=== PATIENT | male | born 1970 | race African-American/Black ===

== ENCOUNTER → 2021-10-17 | Day surgery (SDC) | payer OTHER ==
[~2021-10-17] VITALS: Ht 177.8 cm; Wt 113.4 kg
[~2021-10-17] MED LIST: B COMPLEX1 EACH PO; MOTRIN600 MG PO; NORVASC5 MG PO; VITAMIN C1000 MG PO; VITAMIN D325 MC2 PO
[2021-10-17 06:59] LABS: HCT 44.9 % (42.0-52.0); HGB 14.7 g/dl (13.2-18.0); MCH 27.5 pg (25.0-31.0); MCHC 32.7 g/dL (32.0-36.0); MCV 83.9 fL (78.0-100.0); MPV 9.1 fL (6.0-9.5); RBC 5.35 M/uL (4.70-6.00); RDW 13.1 % (11.5-14.0); WBC 4.1 K/uL (4.0-10.5)
[2021-10-17 07:45] LABS: ALBUMIN 3.4 g/dL (3.4-5.0); BUN/CREAT RATIO (CALC) 10.8 RATIO; CREATININE 1.3 mg/dL (0.67-1.17); GLOBULIN (CALCULATION) 3.9 g/dL; POTASSIUM 4.2 mmol/L (3.5-5.1); TOTAL PROTEIN 7.3 g/dL (6.4-8.2)
== END | disposition home or self-care (01) ==
LOC: FAS 06:07
PROVIDERS: Orthopaedic Surgery
DX: S83.231A Complex tear of medial meniscus, current injury, right knee, initial encounter (principal); M79.4 Hypertrophy of (infrapatellar) fat pad; M67.51 Plica syndrome, right knee
CPT/HCPCS: 36415; 71045; 80053; 93005; J1100; J2250; J2405; J2704; J3010; J7120